=== PATIENT | male | born 1995 | race Caucasian/White ===

== ENCOUNTER 2018-11-28 10:08 | Emergency (ER) | payer MEDICAID ==
[~2018-11-28] VITALS: Ht 177.8 cm; Wt 78.9 kg
[2018-11-28 10:12] VITALS: BP 125/63; PULSE 63; RESP 18; Ht 177.8 cm; Wt 78.9 kg
[2018-11-28] MEDS ORDERED: KETOROLAC 30 MG INJ IM STA (11:15)
[2018-11-28] MEDS ORDERED: HYDR-4011 PO (11:18)
[2018-11-28] MEDS ORDERED: AMOX1TAB10 PO (11:19)
[2018-11-28] MEDS ORDERED: IBUP800T48 PO (11:19)
--- NOTE | 2018-11-28 11:27 | ERD ---
ER Documentation Chief Complaint Chief Complaint TOOTH ACHE HPI Is a 23-year-old male patient who presents to emergency room with tooth pain x3 days. Patient has had broken teeth for some time but the teeth and gums now no have just started to hurt. Patient with fever and chills yesterday. ROS All systems reviewed and are negative except as per history of present illness. Medications Home Meds Active Scripts Ibuprofen* (Motrin*) 800 Mg Tab, 800 MG PO Q6 for PAIN for 14 Days, #30 TAB Prov:MONTRELL DUPREE NP 11/28/18 Amoxicillin/Potassium Clav (Amox-Clav 875-125 mg Tablet) 875-125 mg Tab, 1 TAB PO BID for 7 Days, #14 TAB Prov:MONTRELL DUPREE NP 11/28/18 Hydrocodone/Acetaminophen (Waskish 5-325 Tablet) 1 Each Tablet, 1 TAB PO Q6H PRN for PAIN for 7 Days, #7 TAB Prov:MONTRELL DUPREE NP 11/28/18 Allergies Allergies: Coded Allergies: No Known Allergy (Unverified , 11/28/18) PMhx/Soc Medical and Surgical Hx: pt denies Medical Hx Hx Alcohol Use: No Hx Substance Use: No Hx Tobacco Use: No Smoking Status: Never smoker FmHx Family History: diabetes Physical Exam Vitals Vital Signs Date Temp Pulse Resp B/P (MAP) Pulse Ox O2 O2 Flow FiO2 Time Delivery Rate 11/28/18 98.1 63 18 125/63 99 10:12 (83) Physical Exam Const: No acute distress Head: Atraumatic Eyes: Normal Conjunctiva ENT: Normal External Ears, TM clear BL. Shins, petechiae, no exudate. Tooth #29 and #30 decayed down to gumline with + erythema and swelling to surrounding gums. No oral swelling, uvula midline. Neck: Full range of motion. No meningismus. No lymphadenopathy, no palpable swelling, no stridor, no drooling. Resp: Clear to auscultation bilaterally Cardio: Regular rate and rhythm, no murmurs Abd: Soft, non tender, non distended. Normal bowel sounds Skin: No petechiae or rashes Neur: Awake and alert, CNII-XII intact, clear speech, equal smile Psych: Normal Mood and Affect Results 24 hrs Current Medications Medications Dose Sig/Manfred Start Time Status Last (Trade) Ordered Route PRN Stop Time Admin Dose Reason Admin 1 tab ONCE ONCE 11/28/18 DC 11/28/18 Acetaminophen PO 11:30 11:22 / 11/28/18 11:31 Hydrocodone Bitart (Waskish (5/325)) Ketorolac 30 mg ONCE STAT 11/28/18 DC 11/28/18 Tromethamine IM 11:15 11:22 (Toradol) 11/28/18 11:17 Procedures/MDM PROCEDURES/MDM DIAGNOSTIC IMAGING: Not indicated at this time LAB INTERPRETATION: None -Medications: Toradol, Waskish Patient tolerated medication well with no adverse reactions. Patient reported improvement in pain. MDM: This is a 23-year-old male patient who presents emergency room with complaint of pain to tooth #29 and 30 which are visibly decayed. There is redness and minor swelling on the buccal and lingual surface however there does not appear to be any fluctuance or abscess as there is no purulent drainage. This patients infection appears to be appropriate for outpatient treatment with close follow-up for reevaluation by a clinician or dentist within 24-48 hours. A serious, rapidly progressive infectious process is unlikely based upon the patients presentation and appearance of the infection. Antibiotic treatment has been initiated here and response to treatment will be based on reassessment at close follow-up. The patient has been instructed on signs and symptoms of acute progression of infection and to return immediately if any of these occur. Patient's girlfriend present at time of evaluation and instructions. She states she will find patient dentist to be able to follow-up with as soon as possible even if they have to pay hendricks. Patient provided with list of dental resources in discharge instructions. CURES database reviewed for controlled substance history. There is no indication the patient is abusing prescription medications or is at risk for misuse. History and Physical exam demonstrate the prescribed medication is indicated for the treatment of the patient's condition. DISPOSITION and PLAN: RX: Augmentin, ibuprofen, Waskish The patient has been discharge home to follow-up with community physician. Departure Diagnosis: Primary Impression: Dental infection Condition: Stable Patient Instructions: Dental Pain Referrals: [facility] Usted se ingram hecho un examen mdico de control que le indica que no est en xochitl condicin que requiera tratamiento urgente en el Departamento de Emergencia. Un estudio ms profundo y el tratamiento de bermudez condicin pueden esperar sin ningn riesgo hasta que usted sea atendida/o en el consultorio de bermudez mdico o xochitl clnica. Es responsabilidad suya arreglar xochitl domingo para el seguimiento del marina. MANEJO DE CONDICIONES NO URGENTES EN EL FUTURO 1) Si usted tiene un mdico de atencin primaria: Usted debera llamar a bermudez mdico de atencin primaria antes de venir al departamento de emergencia. Despus de las horas de consultorio, bermudez doctor o bermudez asociado/a est disponible por telfono. El mdico o enfermero de kathy en el servicio telefnico puede asesorarle por aguilar medio para atender el problema, o marina contrario se puede programar xochitl domingo. 2) Si usted no tiene un mdico de atencin primaria: Llame al mdico o clnica de referencia que aparece abajo julius las horas de consultorio para hacer xochitl domingo para que le vean. CLINICAS: [facility] [phone] [facility] [facility] [phone] [address] [facility] [phone] [facility]. [facility] [phone] [address] [facility] [place] [id number] [phone] [facility]. [phone] [facility] () Usted se ingram hecho un examen mdico de control que le indica que no est en xochitl condicin que requiera tratamiento urgente en el Departamento de Emergencia. Un estudio ms profundo y el tratamiento de bermudez condicin pueden esperar sin ningn riesgo hasta que usted sea atendida/o en el consultorio de bermudez mdico o xochitl clnica. Es responsabilidad suya arreglar xochitl domingo para el seguimiento del marina. MANEJO DE CONDICIONES NO URGENTES EN EL FUTURO 1) Si usted tiene un mdico de atencin primaria: Usted debera llamar a bermudez mdico de atencin primaria antes de venir al departamento de emergencia. Despus de las horas de consultorio, bermudez doctor o bermudez asociado/a est disponible por telfono. El mdico o enfermero de kathy en el servicio telefnico puede asesorarle por aguilar medio para atender el problema, o marina contrario se puede programar xochitl domingo. 2) Si usted no tiene un mdico de atencin primaria: Llame al mdico o condado institucions de referencia que aparece abajo julius las horas de consultorio para hacer xochitl domingo para que le vean. SI USTED NO PUEDE PAGAR PARA NOEL UN MEDICO puede ir a: [facility] [id number] [place] [address] [facility] [address] [place] [address] [facility] [address] [place] [address] [facility] [address] [place] [address] [facility] DENTIST ([facility] Dental [facility] walk in clinic) Additional Instructions: Thank you very much for allowing us to participate in your care. Your health and safety is our top priority at [facility]. Call your primary care doctor TOMORROW for an appointment during the next 2-4 days and bring all the information and medications prescribed. Have prescriptions filled and follow precisely the directions on the label. If the symptoms get worse and your provider is unavailable, return to the Emergency Department immediately. COMPLETE ENTIRE COURSE OF ANTIBIOTICS STAY WELL-HYDRATED USE IBUPROFEN FOR PAIN USE NORCO FOR SEVERE PAIN, DO NOT DRIVE, DRINK ALCOHOL ON THIS MEDICATION FOLLOW-UP WITH DENTIST SOON POSSIBLE RETURN TO THE EMERGENCY ROOM FOR FEVERS, SWELLING, DROOLING, DIFFICULTY BREATHING You have been prescribed narcotic medications. Narcotics cannot be refilled from our emergency department and these medications are for temporary acute condition and should be replaced by use of Tylenol, ibuprofen, and add adjunctive therapy such as use of heat or cooling. Narcotics are habit forming and can lead to dependency. Use stool softener and increase hydration while taking narcotics. Do not operate heavy machinery, operate vehicle, care for small children while on narcotic medication. MONTRELL DUPREE NP Nov 28, 2018 11:27
[2018-11-28] MEDS ORDERED: HYDROCODONE/APAP (5/325) TAB PO ONE (11:30)
== END 2018-11-28 11:47 | disposition home or self-care (01) ==
LOC: FTE 10:08 → EDBD 10:08 → FTE 11:47
DX: K04.7 Periapical abscess without sinus (principal)
CPT/HCPCS: 96372; J1885; Z7502; Z7610